=== PATIENT | female | born 1985 | race Caucasian/White ===

== ENCOUNTER 2021-03-24 09:02 | Emergency (ER) | payer OTHER ==
[~2021-03-24 09:02] MED LIST: DIFLUCAN150 MG PO; FIORICET1 EACH PO
[2021-03-24] MEDS ORDERED: MEDROL 4MG DOSEP4 MG PO ×2 (09:54→11:16)
[2021-03-24] MEDS ORDERED: ROBAXIN500 MG PO ×2 (09:54→11:16)
[2021-03-24] MEDS ORDERED: CLARITIN10 MG PO ×2 (09:55→11:16)
== END 2021-03-24 11:20 | disposition home or self-care (01) ==
LOC: FER 09:02
DX: M54.12 Radiculopathy, cervical region (principal); J06.9 Acute upper respiratory infection, unspecified; F17.200 Nicotine dependence, unspecified, uncomplicated
CPT/HCPCS: 99283; J1885

== ENCOUNTER 2021-08-02 08:10 | Emergency (ER) | payer OTHER ==
[~2021-08-02] VITALS: Ht 165.1 cm; Wt 77.1 kg
[~2021-08-02 08:10] MED LIST changes: +CLARITIN10 MG PO; +MEDROL 4MG DOSEP4 MG PO; +ROBAXIN500 MG PO
[2021-08-02 09:50] LABS: BILIRUBIN 1+ mg/dL (NEGATIVE); BLOOD 3+ Ery/uL (NEGATIVE); CLARITY CLEAR (CLEAR); COLOR YELLOW (YELLOW); GLUCOSE (U) NORMAL (NORMAL); LEUKOCYTES TRACE Leu/uL (NEGATIVE); NITRITE POSITIVE (NEGATIVE); PROTEIN 1+ mg/dL (NEGATIVE); SPECIFIC GRAVITY >=1.030 (1.001-1.030)
[2021-08-02 09:59] LABS: BACTERIA 1+; MUCOUS TRACE; SQUAMOUS EPITHELIAL CELLS RARE; URINARY RBC TNTC
[2021-08-02 11:49] LABS: BASOPHIL 0.9 % (0-2); HCT 40.7 % (37.0-47.0); HGB 13.2 g/dl (12.5-16.0); LYMPHOCYTE 24.2 % (15-48); MCH 30.4 pg (25.0-31.0); MCHC 32.4 g/dL (32.0-36.0); MCV 93.8 fL (78.0-100.0); MONOCYTE 8.3 % (0-12); MPV 9.9 fL (6.0-9.5); NEUTROPHIL 62.3 % (41-80); NRBC 0; PLT 249 K/uL (150-400); RBC 4.34 M/uL (4.20-5.40); RDW 12.9 % (11.5-14.0); WBC 6.5 K/uL (4.0-10.5)
[2021-08-02 11:56] LABS: PROTHROMBIN TIME 12.6 SECONDS (11.8-13.4); PTT 28.6 SECONDS (24.4-34.7)
[2021-08-02 12:29] LABS: ALBUMIN 3.6 g/dL (3.4-5.0); ALKALINE PHOSHATASE 76 U/L (46-116); ALT 13 U/L (14-59); AST 24 U/L (15-37); BILIRUBIN - TOTAL 0.2 mg/dL (0.2-1.0); BUN 9 mg/dL (7-18); BUN/CREAT RATIO (CALC) 10.7 RATIO; C-REACTIVE PROTEIN < 0.20 mg/dL (<=0.90); CHLORIDE 106 mmol/L (98-107); CO2 (BICARBONATE) 27 mmol/L (21-32); CPK 122 U/L (26-192); CREATININE 0.84 mg/dL (0.51-0.95); GLOBULIN (CALCULATION) 2.9 g/dL; GLUCOSE 93 mg/dL (74-106); LDH 195 U/L (81-234); LIPASE 60 U/L (73-393); POTASSIUM 3.8 mmol/L (3.5-5.1); TOTAL PROTEIN 6.5 g/dL (6.4-8.2)
[2021-08-02 12:34] LABS: LACTIC ACID 1.6 mmol/L (0.4-1.9)
[2021-08-02] MEDS ORDERED: ZOFRAN4 M1 PO (14:54)
[2021-08-02] MEDS ORDERED: LOPERAMIDE HCL PO (14:54)
[2021-08-02] MEDS ORDERED: NAPROXEN500 MG PO (14:54)
[2021-08-02 15:50] LABS: AMPHETAMINES NEGATIVE (NEGATIVE); BARBITURATES NEGATIVE (NEGATIVE); ECSTASY (MDMA) NEGATIVE (NEGATIVE); MARIJUANA (THC) POSITIVE (NEGATIVE); METHADONE NEGATIVE (NEGATIVE); OPIATES NEGATIVE (NEGATIVE); OXYCODONE NEGATIVE (NEGATIVE)
== END 2021-08-02 15:50 | disposition home or self-care (01) ==
LOC: FER 08:10
PROVIDERS: Emergency Medicine
DX: R11.2 Nausea with vomiting, unspecified (principal); R10.9 Unspecified abdominal pain; R19.7 Diarrhea, unspecified; M79.10 Myalgia, unspecified site; F17.210 Nicotine dependence, cigarettes, uncomplicated; Z87.19 Personal history of other diseases of the digestive system
CPT/HCPCS: 36415; 71045; 80053; 80305; 81001; 82140; 82550; 82728; 83605; 83615; 83690; 83735; 84145; 84484; 85025; 85610; 85730; 86140; 93005; J7120